=== PATIENT | female | born 2005 | race Hispanic/Latino ===

== ENCOUNTER 2024-04-18 20:09 | Emergency (ER) | payer OTHER, SELFPAY ==
[2024-04-18] MEDS ORDERED: Lidocaine/Transparent Dressing 1 EACH KIT ONE (20:36)
== END 2024-04-18 22:35 | disposition home or self-care (01) ==
LOC: ERS 20:09
DX: S20.152A Superficial foreign body of breast, left breast, initial encounter (principal); X58.XXXA Exposure to other specified factors, initial encounter
CPT/HCPCS: 99282